=== PATIENT | female | born 1995 ===

== ENCOUNTER 2018-09-13 08:14 | Emergency (ER) | payer OTHER ==
[2018-09-13 09:09] VITALS: BMI 33.2
[2018-09-13 09:28] LABS: SQUAMOUS EPITHIAL 3 /hpf (0-5); URINE AMORPHOUS SEDIMENT RARE /ul (<OCC); URINE BILIRUBIN NEGATIVE (NEGATIVE); URINE BLOOD NEGATIVE (NEGATIVE); URINE CALCIUM OXALATE CRYSTALS FEW /hpf (<OCC); URINE CLARITY CLOUDY (Clear); URINE COLOR YELLOW (YELLOW); URINE GLUCOSE (UA) >=500 mg/dL (NEGATIVE); URINE HYALINE CAST 0-2 /hpf (0-2); URINE LEUKOCYTE ESTERASE NEG Leu/uL (Negative); URINE PROTEIN 30 mg/dL (NEGATIVE); URINE UROBILINOGEN 0.2-1.0 mg/dL (0.2-1.0)
--- NOTE | 2018-09-13 10:07 | OBHP ---
Datetime: 09/13/2018 09:56 IP Adm Impression: , intrauterine IP Chief Complaint Other: suprapubic pressure IP Admit Plan: Observation/Evaluation; Discharge home Admit Comment, IP Provider: Patient is a @ 31 wks, reported vaginal spotting last night and had suprapubic pressure this morning. Otherwise no vaginal bleeding today, no leaking, +FM, no ctxns. NO antepartum issues, previous x 1, no other surgeries, no allergies, no medication. Pt re ported dysuria, UA was sent to labor, no bleeding noted. Patient given labor precautions and discharg ed home Pelvic Type - PN: Adequate Extremities - PN: Normal Abdomen - PN: Normal Back - PN: Normal Breast - PN: Normal Lungs - PN: Normal Heart - PN: Normal Thyroid - PN: Normal Neurologic - PN: Normal HEENT - PN: Normal General - PN: Normal FHR - Baseline A Provider: 140 Contraction Comments Provider: NOne NICHD Variability Prov Fetus A: Moderate 6-25bpm NICHD Accel Fetus A IP Provider: [id number] NICHD Decel Fetus A IP Provider: None Genitourinary Exam: Normal DTRs - PN: Normal
--- NOTE | 2018-09-13 10:09 | OBDCSUM ---
Datetime: 09/13/2018 10:06 Discharged to, Provider: Home Follow up at, Provider: OB Discharge Time: 09/13/2018 10:06 Follow up in weeks, Provider: 2-3 wks Discharge Diagnosis Prov Other: encounter for urinary discomfort Datetime: 09/13/2018 10:03 Discharged to, Provider: Home Follow [facility] at, [facility] Disch Instr Activity: Normal activity Disch Instr Diet: Regular Discharge Time: 09/06/2018 10:00 Follow up in weeks, Provider: as scheduled September Disch Referrals: None
[2018-09-13 14:21] VITALS: BP 81/60; PULSE 109; RESP 18; TEMP 99.3; O2SAT 100
== END 2018-09-13 10:10 | disposition home or self-care (01) ==
LOC: H.EROB2 08:14
DX: O26.93 Pregnancy related conditions, unspecified, third trimester (principal); R10.2 Pelvic and perineal pain; O26.853 Spotting complicating pregnancy, third trimester; Z3A.31 31 weeks gestation of pregnancy; R30.0 Dysuria

== ENCOUNTER 2018-10-07 12:59 | Emergency (ER) | payer MEDICAID ==
[2018-10-07] MEDS ORDERED: Lactated Ringer's 1,000 ML IV SCH ×2 (14:15→15:00)
[2018-10-07 14:33] LABS: HEMOGLOBIN 12.1 g/dL (12.0-16.0); MEAN CELL VOLUME 83.2 fl (81.0-99.0); MEAN CORPUSCULAR HEMOGLOBIN 27.6 pg (27.0-31.0); MEAN CORPUSCULAR HGB CONC 33.2 g/dL (33.0-37.0); RBC 4.37 Mil/uL (3.80-5.20); RED CELL DISTRIBUTION WIDTH 13.2 % (11.5-14.5); WHITE BLOOD COUNT 9.3 K/uL (4.8-10.8)
[2018-10-07 14:45] VITALS: BMI 32.1
--- NOTE | 2018-10-07 16:52 | OBHP ---
Datetime: 10/07/2018 14:17 IP Adm Impression: , intrauterine IP Admit Plan: Observation/Evaluation Admit Comment, IP Provider: 22 yo f 34.3, with hx of prev c-sec, present to [facility] due to contrac tion, that started yesterday night, contraction stable with no change. Pt denies vag bleed, discharge , or watergush. Pt report N with no vomit, itchy throat, acid reflux, unable to eat during the day, a nd body ache. Otherwise Denies SOB, chest pian, diarrhea or constipaton. denies fever/chills or any o ther symptoms ROS neg except mentioned in HPI allergy none PMH: [place] PSH: C-sec due transverse OBGYN: none PFH None Social denies smoke,drink or drug use 14:21 Assessment and plan pt is a 22yo f 34.3 wk present to [facility] due to contraction. Most likely due to dehydration. Pts not in active labor Plan CBC IV fluid 1L at 999 Pepcid 20mg stat monitor strip Monitor vitals Ysabri PGY1 case discussed with Dr Alamo Addendum by Dr. Alamo: I have evaluated pt independently and I agree with the above Pelvic Type - PN: Adequate Extremities - PN: Normal Abdomen - PN: Normal Back - PN: Normal Breast - PN: Not Done Lungs - PN: Normal Heart - PN: Normal Thyroid - PN: Normal Neurologic - PN: Normal HEENT - PN: Normal General - PN: Normal FHR - Baseline A Provider: 140 Comments, ACOG Physical Exam: Heart no extra heart sound lung clear abd BS+ nontender Pelvic 1 50%, -3 EGA AdmitDate IP: 34.3 Vital Signs Provider: Reviewed Vital Signs Provider Details: tackycardia + high systolic bp IP Chief Complaint: Uterine contractions NICHD Variability Prov Fetus A: Moderate 6-25bpm NICHD Accel Fetus A IP Provider: [id number] NICHD Decel Fetus A IP Provider: None Dilatation, Provider: 1 Effacement, Provider: 50 Station, Provider: -3 Genitourinary Exam: Normal DTRs - PN: Not Done
--- NOTE | 2018-10-07 16:55 | OBDCSUM ---
Datetime: 10/07/2018 15:52 Discharged to, Provider: Home Follow up at, Provider: Primary OB Disch Instr Activity: Normal activity Disch Instr Diet: Regular Discharge Time: 10/07/2018 16:15 Follow up in weeks, Provider: next scheduled appointment Disch Referrals: None Discharge Diagnosis Prov Other: false labor
[2018-10-07 22:57] VITALS: BP 139/77; PULSE 121; RESP 20; TEMP 98.2
== END 2018-10-07 16:15 | disposition home or self-care (01) ==
LOC: H.EROB2 12:59 → H.EROB 13:34 → H.EROB2 16:15
DX: O26.93 Pregnancy related conditions, unspecified, third trimester (principal); R10.2 Pelvic and perineal pain; Z87.59 Personal history of other complications of pregnancy, childbirth and the puerperium; Z3A.34 34 weeks gestation of pregnancy
CPT/HCPCS: 85027; 96374; 99283; J7120